=== PATIENT | female | born 1990 | race African-American/Black ===

== ENCOUNTER 2019-04-14 09:03 | Day surgery (SDC) | payer OTHER ==
[2019-04-14 11:40] LABS: INTERNATIONAL RATION (INR) 0.96; PROTHROMBIN TIME 12.8 SEC (11.4-15.4)
[2019-04-14 11:41] LABS: PARTIAL THROMBOPLASTIN TIME 29.6 SEC (23.5-35.8)
--- NOTE | 2019-04-14 14:50 | RADIOLOGY REPORT (SQ) ---
EXAM DESCRIPTION: LUMBAR PUNCTURE; FLUORO/NEEDLE PLACEMENT/SPINE COMPLETED DATE/TIME: 04/14/2019 2:06 pm REASON FOR STUDY: INCREASED INCRANIAL PRESSURE COMPARISON: None. FLUOROSCOPY TIME: 52 seconds 4 fluoroscopic images saved to PACS. TECHNIQUE: Fluoroscopic guided lumbar puncture. LIMITATIONS: None. PROCEDURE: After written consent and assessment were obtained, the patient was brought into the fluo roscopy room and placed prone on the table. The patient's lower back was prepped in a sterile fashio n and an entry site was selected under live fluoroscopic guidance. The entry site was anesthetized wi th 1% lidocaine. A 20 cm 20 gauge needle was advanced through the skin and into the thecal sac at the left paracentral L2-3 level After approximately 24.5 ml was drained, the needle was removed and a st erile bandage was placed of the site. Specimens were not sent to the lab for testing. A fluoroscopi c spot image was saved to PACS confirming level access. FINDINGS: Clear CSF OPENING PRESSURE 68 CM OF WATER CLOSING PRESSURE 19 CM OF WATER IMPRESSION: Lumbar puncture under fluoroscopy. No immediate complication. ELEVATED OPENING PRESSUR E OF 68 CM OF WATER COMMENT: Patient medication list reviewed: Yes- Quality ID# [id number]:Eligible professional attests to doc umenting in the medical record they obtained, updated, or reviewed the patient's current medications. . Quality ID 145: Final reports for procedures using fluoroscopy that document radiation exposure fredi alphonso, or exposure time and number of fluorographic images (if radiation exposure indices are not avail able) TECHNICAL DOCUMENTATION: JOB ID: [id number]- All Rights Reserved Reading location - IP/workstation name: [email or web address]
[2019-04-14 18:10] VITALS: BP 146/99
== END 2019-04-14 16:40 | disposition home or self-care (01) ==
LOC: RAD 09:03
DX: G93.2 Benign intracranial hypertension (principal); Z86.73 Personal history of transient ischemic attack (TIA), and cerebral infarction without residual deficits; I10 Essential (primary) hypertension; E66.01 Morbid (severe) obesity due to excess calories; Z68.43 Body mass index [BMI] 50.0-59.9, adult; Z79.82 Long term (current) use of aspirin
CPT/HCPCS: 36415; 62270; 77003; 85610; 85730

== ENCOUNTER 2019-04-16 11:55 | Emergency (ER) | payer OTHER ==
[2019-04-16 12:01] VITALS: BP 153/110
== END 2019-04-16 12:20 | disposition left against medical advice (07) ==
LOC: ER 11:55
DX: Z53.21 Procedure and treatment not carried out due to patient leaving prior to being seen by health care provider (principal); R51 Headache